=== PATIENT | female | born 1945 | race African-American/Black ===

== ENCOUNTER 2022-05-13 11:09 | Emergency (ER) | payer MEDICARE ==
[2022-05-13 11:19] VITALS: TEMP 97.7
--- NOTE | 2022-05-13 11:23 | ED ---
Fall HPI - General Chief Complaint: Fall Stated Complaint: Fall Time Seen by Provider: 05/13/22 11:15 Source: patient, EMS, RN notes reviewed Mode of arrival: EMS - History of Present Illness Initial Comments: Patient is a 76-year-old -[place] female presenting to the emergency room via EMS after falling out of bed today and 2 falls yesterday at her assisted living facility. She reports that since she had a stroke in 2019 she has had multiple falls with difficulty walking despite no significant focal neurological deficits. She reports that she fell a few weeks ago and fractured her right shoulder and states that her right shoulder is having some pain but denies any pain anywhere else. She denies any headache, dizziness, altered mental status, abdominal pain, nausea, vomiting, chest pain, shortness of breath, fevers or chills. In addition to her stroke history she has a past medical history significant for diabetes, hypertension, hyperlipidemia, atherosclerotic heart disease with congestive heart failure and GERD. - Related Data Home Medications Medication Instructions Recorded Confirmed Acetaminophen [Tylenol 8 Hour] 650 mg PO Q6H 05/13/22 05/13/22 Apixaban [Eliquis] 5 mg PO Q12H 05/13/22 05/13/22 Aspirin 325 mg PO DAILY 05/13/22 05/13/22 Atorvastatin Calcium [Lipitor] 40 mg PO HS 05/13/22 05/13/22 Critic-Aid Clear Ointment 1 applic TOPICAL Q12H 05/13/22 05/13/22 Digoxin 250 mcg PO DAILY 05/13/22 05/13/22 Glucerna Shake 237 ml PO DAILY 05/13/22 05/13/22 INSULIN LISPRO (HumaLOG) [humaLOG] See Protocol SQ ACHS 05/13/22 05/13/22 Lidocaine 5% Patch [Lidoderm] 1 patch TRANSDERM DAILY 05/13/22 05/13/22 Losartan [Cozaar] 50 mg PO DAILY 05/13/22 05/13/22 Metoclopramide HCl [Reglan] 5 mg PO TID 05/13/22 05/13/22 Metoprolol Succinate [Toprol XL] 50 mg PO DAILY 05/13/22 05/13/22 Mirtazapine [Remeron] 15 mg PO HS 05/13/22 05/13/22 Pantoprazole [Protonix] 40 mg PO AC-[id number] 05/13/22 05/13/22 Potassium Chloride Oral Liquid 40 meq PO DAILY 05/13/22 05/13/22 Sertraline [Zoloft] 25 mg PO DAILY 05/13/22 05/13/22 bisacodyL 10 mg RECTAL DAILY PRN 05/13/22 05/13/22 traMADol HCL 50 mg PO Q8H PRN 05/13/22 05/13/22 Allergies Allergy/AdvReac Type Severity Reaction Status Date / Time codeine Allergy Itching Verified 05/13/22 12:41 hydromorphone [From Dilaudid] Allergy Itching Verified 05/13/22 12:41 shellfish derived Allergy Unknown Verified 05/13/22 12:41 Review of Systems ROS Statement: Those systems with pertinent positive or pertinent negative responses have been documented in the HPI. ROS Other: All systems not noted in ROS Statement are negative. Past Medical History Past Medical History: Heart Failure, CVA/TIA (2020), Diabetes Mellitus, GERD/Reflux, Hyperlipidemia, Hypertension Additional Past Medical History / Comment(s): atherosclerotic heart disease History of Any Multi-Drug Resistant Organisms: None Reported Past Surgical History: Appendectomy, Coronary Bypass/CABG, Heart Catheterization With Stent, Hysterectomy Past Psychological History: Depression Smoking Status: Former smoker Past Alcohol Use History: Rare Past Drug Use History: None Reported General Exam General appearance: alert, in no apparent distress Head exam: Present: atraumatic, normocephalic, normal inspection Eye exam: Present: normal appearance, PERRL, EOMI. Absent: scleral icterus, conjunctival injection, periorbital swelling ENT exam: Present: normal exam, mucous membranes moist Neck exam: Present: normal inspection, full ROM. Absent: lymphadenopathy Respiratory exam: Present: normal lung sounds bilaterally. Absent: respiratory distress, wheezes, rales, rhonchi, stridor Cardiovascular Exam: Present: regular rate, normal rhythm, normal heart sounds, systolic murmur. Absent: diastolic murmur, rubs, gallop, clicks GI/Abdominal exam: Present: soft, normal bowel sounds. Absent: distended, tenderness, guarding, rebound, rigid Extremities exam: Absent: pedal edema, joint swelling Right Shoulder Exam: Present: tenderness, other (known fracture). Absent: full ROM Back exam: Present: normal inspection Neurological exam: Present: alert, oriented X3, CN II-XII intact Psychiatric exam: Present: normal affect, normal mood Skin exam: Present: warm, dry, intact, normal color. Absent: rash Course Vital Signs 05/13/22 05/13/22 11:11 13:24 Temperature 97.7 F Pulse Rate 73 70 Respiratory 18 16 Rate Blood Pressure 150/77 140/95 O2 Sat by Pulse 99 100 Oximetry Medical Decision Making - Medical Decision Making 76-year-old, or -[place] female presenting to the emergency room with recurrent falls from assisted living. Falls ongoing since CVA in 2019 with inc reased frequency recently. Patient is on blood thinners. No loss of consciousness or dizziness. Will obtain CT of the brain and cervical spine. No new extremity pain. Known fracture to the right shoulder. No need for any other diagnostic imaging at this time. Will obtain EKG along with CBC, CMP PT INR and urinalysis to evaluate other underlying causes of recurrent falls. She denies any analgesic needs at this time. Computed tomography scan image and report reviewed. Radiologist interpretation i ndicates that there is a possible calcification versus intraparenchymal hemorrhage wihtin the left basal ganglia. This finding was discussed with Dr. Meehan and the reading radiologist who recommended observation and repeat imaging with low probability for bleed however given fall repeat imaging is recommended. Due to potential hemorrhage and lack of neurosurgeon availability here will coordinate for transfer to alternative facility for observation and repeat scan. EKG with sinus rhythm with left ventricular hypertrophy. Laboratory studies without significant anomalies. No further laboratory studies indicated at this time. As stated above will coordinate for transfer for repeat imaging. CAT scan findings discussed with Dr. Verde at [facility] who is accepting of patient for monitoring and repeat imaging. Will coordinate ambulance for transfer to [facility] for ER to ER transfer. Case discussed with Dr. Meehan. - Lab Data Result diagrams: 05/13/22 11:24 05/13/22 11:24 Lab Results 05/13/22 05/13/22 05/13/22 Range/Units 11:24 11:24 11:24 WBC 8.3 (3.8-10.6) k/uL RBC 4.30 (3.80-5.40) m/uL Hgb 13.3 (11.4-16.0) gm/dL Hct 41.1 (34.0-46.0) % MCV 95.6 (80.0-100.0) fL MCH 31.0 (25.0-35.0) pg MCHC 32.4 (31.0-37.0) g/dL RDW 15.0 (11.5-15.5) % Plt Count 325 (150-450) k/uL MPV 8.7 Neutrophils % 72 % Lymphocytes % 17 % Monocytes % 5 % Eosinophils % 4 % Basophils % 1 % Neutrophils # 6.0 (1.3-7.7) k/uL Lymphocytes # 1.4 (1.0-4.8) k/uL Monocytes # 0.4 (0-1.0) k/uL Eosinophils # 0.3 (0-0.7) k/uL Basophils # 0.1 (0-0.2) k/uL PT 10.3 (9.0-12.0) sec INR 0.9 (<1.2) APTT 23.7 (22.0-30.0) sec Sodium 138 (137-145) mmol/L Potassium 4.9 (3.5-5.1) mmol/L Chloride 102 (98-107) mmol/L Carbon Dioxide 24 (22-30) mmol/L Anion Gap 12 mmol/L BUN 11 (7-17) mg/dL Creatinine 0.86 (0.52-1.04) mg/dL Est GFR (CKD-EPI)AfAm 77 (>60 ml/min/1.73 sqM) Est GFR (CKD-EPI)NonAf 67 (>60 ml/min/1.73 sqM) Glucose 186 H (74-99) mg/dL Calcium 10.6 H (8.4-10.2) mg/dL Total Bilirubin 0.7 (0.2-1.3) mg/dL AST 24 (14-36) U/L ALT 26 (4-34) U/L Alkaline Phosphatase 169 H (38-126) U/L Total Protein 7.6 (6.3-8.2) g/dL Albumin 4.2 (3.5-5.0) g/dL Urine Color Urine Appearance (Clear) Urine pH (5.0-8.0) Ur Specific [place] (1.001-1.035) Urine Protein (Negative) Urine Glucose (UA) (Negative) Urine Ketones (Negative) Urine Blood (Negative) Urine Nitrite (Negative) Urine Bilirubin (Negative) Urine Urobilinogen (<2.0) mg/dL Ur Leukocyte Esterase (Negative) Urine RBC (0-5) /hpf Urine WBC (0-5) /hpf Ur Squamous Epith Cells (0-4) /hpf 05/13/22 Range/Units 12:13 WBC (3.8-10.6) k/uL RBC (3.80-5.40) m/uL Hgb (11.4-16.0) gm/dL Hct (34.0-46.0) % MCV (80.0-100.0) fL MCH (25.0-35.0) pg MCHC (31.0-37.0) g/dL RDW (11.5-15.5) % Plt Count (150-450) k/uL MPV Neutrophils % % Lymphocytes % % Monocytes % % Eosinophils % % Basophils % % Neutrophils # (1.3-7.7) k/uL Lymphocytes # (1.0-4.8) k/uL Monocytes # (0-1.0) k/uL Eosinophils # (0-0.7) k/uL Basophils # (0-0.2) k/uL PT (9.0-12.0) sec INR (<1.2) APTT (22.0-30.0) sec Sodium (137-145) mmol/L Potassium (3.5-5.1) mmol/L Chloride (98-107) mmol/L Carbon Dioxide (22-30) mmol/L Anion Gap mmol/L BUN (7-17) mg/dL Creatinine (0.52-1.04) mg/dL Est GFR (CKD-EPI)AfAm (>60 ml/min/1.73 sqM) Est GFR (CKD-EPI)NonAf (>60 ml/min/1.73 sqM) Glucose (74-99) mg/dL Calcium (8.4-10.2) mg/dL Total Bilirubin (0.2-1.3) mg/dL AST (14-36) U/L ALT (4-34) U/L Alkaline Phosphatase (38-126) U/L Total Protein (6.3-8.2) g/dL Albumin (3.5-5.0) g/dL Urine Color Light Yellow Urine Appearance Clear (Clear) Urine pH 6.0 (5.0-8.0) Ur Specific [place] 1.010 (1.001-1.035) Urine Protein Negative (Negative) Urine Glucose (UA) Negative (Negative) Urine Ketones Negative (Negative) Urine Blood Negative (Negative) Urine Nitrite Negative (Negative) Urine Bilirubin Negative (Negative) Urine Urobilinogen <2.0 (<2.0) mg/dL Ur Leukocyte Esterase Small H (Negative) Urine RBC 1 (0-5) /hpf Urine WBC 12 H (0-5) /hpf Ur Squamous Epith Cells <1 (0-4) /hpf - EKG Data -: EKG Interpreted by Me EKG Comments: EKG at 1133 sinus rhythm, left ventricular hypertrophy and ST changes, inferior MN of undetermined age, ventricular rate 66 bpm, [place] interval 173 ms, QRS duration 93 ms, QT/QTC 339/353 ms, PRT axes 24, -7, -60 When compared to previous EKG there are: previous EKG unavailable - Radiology Data Radiology results: report reviewed, image reviewed CT of brain and cervical spine without contrast shows that there is a focal hyperdense activity within the left basal ganglia which could reflect calcification although a small intraparenchymal hemorrhage is difficult to exclude. Correlate clinically and consider follow-up study. Age-related atrophic changes and small vessel ischemic changes. No evidence of acute fracture or subluxation of the cervical spine Disposition Clinical Impression: Fall Disposition: OTHER INSTITUTION NOT DEFINED Condition: Stable Is patient prescribed a controlled substance at d/c from ED?: No Referrals: None,Stated [Primary Care Provider] - 1-2 days Time of Disposition: 15:16 - Out of Hospital Transfer - Req. Specs Out of Hospital Transfer - Requested Specifics: Other Emergency Center ([facility] accepting provider Dr. Verde)
--- NOTE | 2022-05-13 12:26 | CT ---
EXAMINATION TYPE: CT brain melani bates DATE OF EXAM: 05/13/2022 COMPARISON: None HISTORY: Frequent falls CT DLP: [address] of the brain was performed. The ventricles, basal cisterns and sulci overlying the cerebral convexities demonstrate mild enlargem ent. There is focal hyperdensity within the left basal ganglia which could reflect calcification alt stefanie a small intraparenchymal hemorrhages difficult to exclude. Correlate clinically and consider fo llow-up study. There is no evidence for intracranial hemorrhage or sulcal effacement. There is decreased attenuatio n about the periventricular white matter and deep white matter of both cerebral hemispheres, compatib le with chronic small vessel ischemia. No mass effects are seen. If symptoms persist consider MRI. Osseous calvarium is intact. IMPRESSION: 1.There is focal hyperdensity within the left basal ganglia which could reflect calcification althoug h a small intraparenchymal hemorrhage is difficult to exclude. Correlate clinically and consider foll ow-up study. 2. Age related atrophic and chronic small vessel ischemic change. CT Cervical Spine: Unenhanced CT of the cervical spine was performed with bone and soft tissue window settings submitted . Coronal and sagittal reconstruction is obtained. There is normal alignment and prevertebral soft tissues. No evidence for acute cervical fracture . Scattered degenerative disc disease and spondylosis. Biapical scarring. IMPRESSION: 1. No evidence for acute fracture or subluxation of the cervical spine.
[2022-05-13] MEDS ORDERED: HYDROcodone/APAP 5-325MG 1 EACH TAB PO STA (13:21)
[2022-05-13 13:24] LABS: Appearance,Urine Clear (Clear); Bilirubin,Urine Negative (Negative); Blood,Urine Negative (Negative); Color,Urine Light Yellow; Glucose,Urine (UA) Negative (Negative); Ketones,Urine Negative (Negative); Leukocyte Esterase,Urine Small (Negative); Nitrite,Urine Negative (Negative); Protein,Urine Negative (Negative); RBC,Urine 1 /hpf (0-5); Squamous Epithelial Cell,Urine <1 /hpf (0-4); Urobilinogen,Urine <2.0 mg/dL (<2.0); WBC,Urine 12 /hpf (0-5)
[2022-05-13 13:29] LABS: Albumin 4.2 g/dL (3.5-5.0); Calcium 10.6 mg/dL (8.4-10.2); Potassium 4.9 mmol/L (3.5-5.1); Total Bilirubin 0.7 mg/dL (0.2-1.3); Total Protein 7.6 g/dL (6.3-8.2)
[2022-05-13 14:20] LABS: Basophils # (A) 0.1 k/uL (0-0.2); Basophils % (A) 1 %; Eosinophils # (A) 0.3 k/uL (0-0.7); Eosinophils % (A) 4 %; HCT 41.1 % (34.0-46.0); HGB 13.3 gm/dL (11.4-16.0); Lymphocytes # (A) 1.4 k/uL (1.0-4.8); Lymphocytes % (A) 17 %; MCHC 32.4 g/dL (31.0-37.0); MCV 95.6 fL (80.0-100.0); Mean Platelet Volume 8.7; Monocytes # (A) 0.4 k/uL (0-1.0); Monocytes % (A) 5 %; Neutrophils % (A) 72 %; Platelet Count 325 k/uL (150-450); WBC 8.3 k/uL (3.8-10.6)
[2022-05-13 14:36] LABS: INR 0.9 (<1.2); Partial Thromboplastin Time 23.7 sec (22.0-30.0); Prothrombin Time 10.3 sec (9.0-12.0)
[2022-05-13 16:53] VITALS: BP 142/74; PULSE 80; RESP 18
== END 2022-05-13 16:33 | disposition other institution (70) ==
LOC: EC 11:09
DX: M25.511 Pain in right shoulder (principal); I11.0 Hypertensive heart disease with heart failure; Z86.73 Personal history of transient ischemic attack (TIA), and cerebral infarction without residual deficits; I50.9 Heart failure, unspecified; E11.9 Type 2 diabetes mellitus without complications; K21.9 Gastro-esophageal reflux disease without esophagitis; E78.5 Hyperlipidemia, unspecified; F32.A Depression, unspecified; Z87.891 Personal history of nicotine dependence; Z88.5 Allergy status to narcotic agent; Z88.8 Allergy status to other drugs, medicaments and biological substances; Z91.013 Allergy to seafood; Z79.82 Long term (current) use of aspirin; Z79.4 Long term (current) use of insulin; Z79.899 Other long term (current) drug therapy; W06.XXXA Fall from bed, initial encounter
CPT/HCPCS: 36415; 70450; 72125; 80053; 81001; 85025; 85610; 85730; 87086; 93005; 99285